=== PATIENT | female | born 1980 | race Caucasian/White ===

== ENCOUNTER 2019-06-22 01:25 | Emergency (ER) | payer OTHER ==
[~2019-06-22] VITALS: Ht 167.6 cm; Wt 49.0 kg
[2019-06-22 01:36] VITALS: BP 112/76
[2019-06-22] MEDS ORDERED: LIDOCAINE 1%-EPI 1:100,000 20 ML VIAL ONE (01:39)
== END 2019-06-22 02:06 ==
LOC: ER 01:32
DX: S61.211A Laceration without foreign body of left index finger without damage to nail, initial encounter (principal); Z02.89 Encounter for other administrative examinations; W25.XXXA Contact with sharp glass, initial encounter; Y93.89 Activity, other specified; Y92.89 Other specified places as the place of occurrence of the external cause; Y99.8 Other external cause status
CPT/HCPCS: 12002; 99284; A6403; J3490